=== PATIENT | male | born 1965 | race Caucasian/White ===

== ENCOUNTER → 2019-03-09 | Outpatient (CLI) | payer OTHER ==
[~2019-03-09] MED LIST: MULT-516 PO; SILD20TA2 PO; SIMV40TA3 PO; [UNRECOGNIZED DRUG - OTHER] PO
[2019-03-09 09:53] LABS: BASOPHILS # (AUTO) 0.02 x10^3/uL (0-0.1); BASOPHILS % (AUTO) 1 % (0-1); EOSINOPHILS # (AUTO) 0.18 x10^3/uL (0-0.4); EOSINOPHILS % (AUTO) 4 % (1-7); LYMPHOCYTES # (AUTO) 1.16 x10^3/uL (1-3.4); LYMPHOCYTES % (AUTO) 26 % (22-44); MD NO; MEAN CORPUSCULAR HGB CONC 33.3 g/dL (33.2-36.2); MEAN CORPUSCULAR VOLUME 96.2 fL (81-97); MEAN PLATELET VOLUME 6.4 fL (7.4-10.4); MONOCYTES # (AUTO) 0.32 x10^3/uL (0.2-0.8); MONOCYTES % (AUTO) 7 % (2-9); NEUTROPHILS # (AUTO) 2.72 x10^3/uL (1.8-6.8); NEUTROPHILS % (AUTO) 62 % (42-75); PLATELET COUNT 363 x10^3/uL (130-400); RED BLOOD COUNT 4.79 x10^6/uL (4.38-5.82); RED CELL DISTRIBUTION WIDTH 13.5 % (9.4-14.8)
[2019-03-09 10:05] LABS: ALANINE AMINOTRANSFERASE 30 U/L (12-78); ALBUMIN 4.2 g/dL (3.4-5.0); ANION GAP 6 mmol/L (5-15); CALCIUM 9.5 mg/dL (8.5-10.1); CHLORIDE 106 mmol/L (98-107); CREATININE 1.04 mg/dL (0.7-1.3)
[2019-03-09 10:07] LABS: ALKALINE PHOSPHATASE 43 U/L (45-117); BILIRUBIN,TOTAL 0.8 mg/dL (0.2-1.0); TOTAL PROTEIN 7.8 g/dL (6.4-8.2)
== END | disposition home or self-care (01) ==
LOC: STAR 08:52
PROVIDERS: ATTEND Urology
DX: Z01.818 Encounter for other preprocedural examination (principal); C61 Malignant neoplasm of prostate
CPT/HCPCS: 36415; 80053; 85025; 93005

== ENCOUNTER 2019-03-18 09:58 | Inpatient (IN) | payer OTHER ==
[~2019-03-18] VITALS: Ht 177.8 cm; Wt 86.0 kg
[~2019-03-18 09:58] MED LIST changes: +BUPIVACAINE/PF 0.25% ONE; +EPINEPHRINE 1 MG/ML, 1ML ONE; +OPIUM/BELLADONNA SUPP.RECT 16.2-60 MG ONE; +THROMBIN 5,000 UNIT VIAL TP ONE
[2019-03-18] MEDS ORDERED: LACTATED RINGERS 1,000 ML IV SCH ×2 (10:09→10:34)
[2019-03-18] MEDS ORDERED: MIDAZOLAM 1 MG/ML, 2ML ONE (10:29)
[2019-03-18] MEDS ORDERED: FENTANYL PF 250 MCG/5ML ONE (10:29)
[2019-03-18] MEDS ORDERED: DEXAMETHASONE 4 MG/ML, 1ML ONE ×2 (10:30)
[2019-03-18] MEDS ORDERED: PROPOFOL 10 MG/ML, 20ML ONE (10:30)
[2019-03-18] MEDS ORDERED: ROCURONIUM 10MG/ML,5ML ONE ×3 (10:30→17:15)
[2019-03-18] MEDS ORDERED: LIDOCAINE-MPF 2% ,5ML ONE (10:30)
[2019-03-18] MEDS ORDERED: ONDANSETRON 2MG/ML, 2ML ONE (10:30)
[2019-03-18] MEDS ORDERED: CEFAZOLIN 1,000 MG ONE ×2 (10:30)
[2019-03-18] MEDS ORDERED: ACETAMINOPHEN 500 MG TABLET ONE (10:31)
[2019-03-18] MEDS ORDERED: GABAPENTIN 300 MG CAPSULE ONE (10:32)
[2019-03-18] MEDS ORDERED: ACETAMINOPHEN 500 MG TABLET PO ONE (11:00)
[2019-03-18] MEDS ORDERED: GABAPENTIN 300 MG CAPSULE PO ONE (11:00)
[2019-03-18] MEDS ORDERED: NEOSTIGMINE 1 MG/ML, 10ML ONE (12:39)
[2019-03-18] MEDS ORDERED: PHENYLEPHRINE 10 MG/ML ONE (12:39)
[2019-03-18] MEDS ORDERED: GLYCOPYRROLATE 0.2MG/1ML, 5ML ONE (12:39)
[2019-03-18] MEDS ORDERED: BUPIVACAINE/PF 0.25% INFIL ONE (13:23)
[2019-03-18] MEDS ORDERED: HYDROmorphone 2 MG/ML, 1ML ONE (17:44)
[2019-03-18] MEDS ORDERED: FENTANYL PF 100 MCG/2ML ONE (17:44)
[2019-03-18] MEDS ORDERED: OXYcodone 5 MG/5 ML ORAL.SOL UDC ONE (17:44)
[2019-03-18] MEDS: FENTANYL PF 100 MCG/2ML IV PRN ×2 (17:51→17:56)
[2019-03-18] MEDS: HYDROmorphone 2 MG/ML, 1ML IVPush PRN ×4 (17:58→18:24)
[2019-03-18] MEDS ORDERED: LORazepam 2 MG/ML, 1ML IVPush PRN (18:00)
[2019-03-18] MEDS ORDERED: hydrALAzine 20 MG/ML, 1ML IV PRN (18:00)
[2019-03-18] MEDS ORDERED: OXYcodone 5 MG/5 ML ORAL.SOL UDC PO PRN (18:00)
[2019-03-18] MEDS ORDERED: ONDANSETRON 2MG/ML, 2ML IV PRN (18:00)
[2019-03-18] MEDS ORDERED: MEPERIDINE/PF 25MG/0.5ML IVPush PRN (18:00)
[2019-03-18] MEDS ORDERED: METOCLOPRAMIDE 5 MG/ML, 2ML IV PRN (18:00)
[2019-03-18] MEDS ORDERED: ACETAMINOPHEN 325 MG TABLET PO PRN (18:00)
[2019-03-18 19:00] VITALS: BP 149/83
[2019-03-18] MEDS ORDERED: OPIUM/BELLADONNA SUPP.RECT 16.2-60 MG PR PRN (19:30)
[2019-03-18] MEDS ORDERED: morphine SULFATE 10 MG/ML, 1ML IV PRN (19:30)
[2019-03-18] MEDS: ACETAMINOPHEN 500 MG TABLET PO SCH (19:50)
[2019-03-18] MEDS: D5%-0.45NACL+KCL 20MEQ 1,000 ML IV SCH (19:50)
[2019-03-18] MEDS: OXYcodone IR 5MG TABLET PO PRN ×2 (20:16→22:21)
[2019-03-19 00:21] VITALS: BP 129/79
[2019-03-19] MEDS: ACETAMINOPHEN 500 MG TABLET PO SCH ×3 (02:00→13:36)
[2019-03-19] MEDS: OXYcodone IR 5MG TABLET PO PRN ×4 (02:25→13:19)
[2019-03-19] MEDS: D5%-0.45NACL+KCL 20MEQ 1,000 ML IV SCH ×2 (02:34→09:46)
[2019-03-19 03:49] VITALS: BP 101/61
[2019-03-19 07:29] VITALS: BP 126/73
[2019-03-19] MEDS ORDERED: ENOXAPARIN 40 MG/0.4 ML SQ SCH (08:00)
[2019-03-19 12:36] VITALS: BP 135/83
== END 2019-03-19 14:15 | disposition home or self-care (01) | DRG 708 ==
LOC: OUT 09:58 → 4NOR 18:58 → OUT 20:27
PROVIDERS: ADMIT Urology; ATTEND Urology
PROC: 8E0W4CZ Robotic Assisted Procedure of Trunk Region, Percutaneous Endoscopic Approach (ICD-10-PCS; 2019-03-18)
PROC: 0VT04ZZ Resection of Prostate, Percutaneous Endoscopic Approach (ICD-10-PCS; principal; 2019-03-18 12:00)
DX: C61 Malignant neoplasm of prostate (principal); K66.0 Peritoneal adhesions (postprocedural) (postinfection); Z80.42 Family history of malignant neoplasm of prostate; E78.00 Pure hypercholesterolemia, unspecified
CPT/HCPCS: 36415; 74018; J3490; 85014; 85018; 86850; 86900; 88309; C1729; G0378; J0171; J0690; J1100; J1170; J1650; J2250; J2405; J2704; J2710; J3010; C1760; J2270; J2370; J3480; J7120

== ENCOUNTER 2019-03-25 12:44 | Outpatient (CLI) | payer OTHER ==
[~2019-03-25 12:44] MED LIST changes: -BUPIVACAINE/PF 0.25% ONE; -EPINEPHRINE 1 MG/ML, 1ML ONE; -OPIUM/BELLADONNA SUPP.RECT 16.2-60 MG ONE; -THROMBIN 5,000 UNIT VIAL TP ONE
== END 2019-03-25 23:59 | disposition home or self-care (01) ==
LOC: RAD 12:44
PROVIDERS: ATTEND Urology
DX: C61 Malignant neoplasm of prostate (principal)
CPT/HCPCS: 74430

== ENCOUNTER → 2020-06-30 | Outpatient (CLI) | payer OTHER ==
[~2020-06-30] MED LIST changes: +FENTANYL PF 250 MCG/5ML ONE; +MIDAZOLAM 1 MG/ML, 2ML ONE; +SIMV40TA20 PO; -SIMV40TA3 PO
[2020-06-30 17:09] LABS: BASOPHILS % (AUTO) 1 % (0-1); EOSINOPHILS % (AUTO) 3 % (1-7); LYMPHOCYTES % (AUTO) 29 % (22-44); MEAN CORPUSCULAR HEMOGLOBIN 32.7 pg (27.5-34.5); MEAN CORPUSCULAR HGB CONC 33.6 g/dL (33.2-36.2); MEAN PLATELET VOLUME 6.8 fL (7.4-10.4); MONOCYTES % (AUTO) 11 % (2-9); NEUTROPHILS % (AUTO) 56 % (42-75); PLATELET COUNT 391 x10^3/uL (130-400); RED CELL DISTRIBUTION WIDTH 14.1 % (9.4-14.8)
[2020-06-30 17:12] LABS: ALANINE AMINOTRANSFERASE 42 U/L (12-78); ANION GAP 4 mmol/L (5-15); CALCIUM 9.2 mg/dL (8.5-10.1); CHLORIDE 106 mmol/L (98-107); CREATININE 1.07 mg/dL (0.7-1.3)
[2020-06-30 17:14] LABS: MD NO
[2020-06-30 17:15] LABS: ALKALINE PHOSPHATASE 49 U/L (45-117); BILIRUBIN,TOTAL 0.7 mg/dL (0.2-1.0); TOTAL PROTEIN 7.7 g/dL (6.4-8.2)
== END | disposition home or self-care (01) ==
LOC: STAR 14:49
PROVIDERS: ATTEND Surgery
DX: Z01.818 Encounter for other preprocedural examination (principal); Z20.828 Contact with and (suspected) exposure to other viral communicable diseases; K43.2 Incisional hernia without obstruction or gangrene
CPT/HCPCS: 36415; 71046; 80053; 85025; 87635; 93005

== ENCOUNTER 2020-07-05 08:36 | Day surgery (SDC) | payer OTHER ==
[~2020-07-05] VITALS: Ht 177.8 cm; Wt 82.5 kg
[~2020-07-05 08:36] MED LIST changes: -FENTANYL PF 250 MCG/5ML ONE; -MIDAZOLAM 1 MG/ML, 2ML ONE
[2020-07-05] MEDS ORDERED: CHLORHEXIDINE 15 ML UDC ONE (09:04)
[2020-07-05 09:18] VITALS: BP 155/93
[2020-07-05] MEDS ORDERED: CHLORHEXIDINE 15 ML UDC MM ONE (09:30)
[2020-07-05] MEDS ORDERED: LACTATED RINGERS 1,000 ML IV SCH (09:30)
[2020-07-05] MEDS ORDERED: SUGAMMADEX 200 MG/2 ML IVPush ONE (10:38)
[2020-07-05] MEDS ORDERED: CEFAZOLIN 1,000 MG ONE (10:38)
[2020-07-05] MEDS ORDERED: KETOROLAC 30 MG/1 ML ONE (10:38)
[2020-07-05] MEDS ORDERED: ONDANSETRON 2MG/ML, 2ML ONE ×2 (10:38→12:59)
[2020-07-05] MEDS ORDERED: FENTANYL PF 250 MCG/5ML ONE (10:38)
[2020-07-05] MEDS ORDERED: PROPOFOL 10 MG/ML, 20ML ONE (10:38)
[2020-07-05] MEDS ORDERED: SUCCINYLCHOLINE 20 MG/ML, 10ML ONE (10:38)
[2020-07-05] MEDS ORDERED: MIDAZOLAM 1 MG/ML, 5ML ONE (10:38)
[2020-07-05] MEDS ORDERED: DEXAMETHASONE 4 MG/ML, 1ML ONE (10:38)
[2020-07-05] MEDS ORDERED: ROCURONIUM 10 MG/ML,10ML ONE (10:38)
[2020-07-05] MEDS ORDERED: FENTANYL PF 100 MCG/2ML ONE (12:59)
[2020-07-05] MEDS ORDERED: OXYcodone 5 MG/5 ML ORAL.SOL UDC ONE (12:59)
[2020-07-05] MEDS ORDERED: OXYcodone 5 MG/5 ML ORAL.SOL UDC PO PRN (13:00)
[2020-07-05] MEDS ORDERED: ONDANSETRON 2MG/ML, 2ML IVPush PRN (13:00)
[2020-07-05] MEDS ORDERED: MEPERIDINE/PF 25MG/0.5ML IVPush PRN (13:00)
[2020-07-05] MEDS ORDERED: HYDROmorphone 1 MG/ML, 1ML INJ IVPush PRN (13:00)
[2020-07-05] MEDS: FENTANYL PF 100 MCG/2ML IV PRN ×3 (13:04→13:15)
== END 2020-07-05 14:30 | disposition home or self-care (01) ==
LOC: OUT 08:36
PROVIDERS: ATTEND Surgery
DX: K43.2 Incisional hernia without obstruction or gangrene (principal); E78.00 Pure hypercholesterolemia, unspecified; E03.9 Hypothyroidism, unspecified; F17.210 Nicotine dependence, cigarettes, uncomplicated; Z98.890 Other specified postprocedural states; Z79.899 Other long term (current) drug therapy; Z72.89 Other problems related to lifestyle; Z80.3 Family history of malignant neoplasm of breast; Z80.42 Family history of malignant neoplasm of prostate; Z82.49 Family history of ischemic heart disease and other diseases of the circulatory system
CPT/HCPCS: 49654; C1781; J0330; J0690; J1100; J1885; J2250; J2405; J2704; J3010; J7120; S2900